=== PATIENT | male | born 1940 | race Caucasian/White ===

== ENCOUNTER 2016-05-22 09:57 | Observation (INO) | payer OTHER ==
--- NOTE | ~2016-05-22 | HP ---
History And Physical [address] [place]. [address] NAME: ELOISA BOURGEOIS : 36 STATUS : ADM Dillon PAT#: [id number] AGE: 76 ADM/REG DATE : 05/22/16 MR#: [id number] REPORT SERV DATE: 05/23/16 DICTATED BY: JENNIFER RAHMAN DATE: 05/23/16 REPORT STATUS : Draft TRANSCRIBED BY: MODYolette DATE: 05/23/16 DATE OF ADMISSION: 05/22/2016 CHIEF COMPLAINT: Chest pain. HISTORY OF PRESENT ILLNESS: This is a 76-year-old male with history of hypertension, hyperlipidemia and type 2 diabetes mellitus, who states onset of right-sided chest pain a couple of days ago while at rest. The chest pain is described as "like somebody cutting me with a knife," and he points to the right side of his chest. It is a 4/10 to 5/10 in intensity, and he states it has been constant since onset. Sometimes, it seems worse with a cough or a deep breath. Of note, the patient was diagnosed with sinusitis by his primary care physician a couple of weeks ago, and the patient states he completed antibiotic therapy as well as a steroid dose pack. He continues to have white and green-colored sputum with coughing, but denies any fever or chills. The patient denies personal history for HI, CVA, PE, or DVT. He states compliance with his medications, although he is not certain of all the doses. Denies any orthopnea, PND, significant shortness of breath with daily activities, lower extremity edema, or palpitations. He does note that sometime last week, he stood up all of a sudden and then fell to the floor. There was no "blackout", but the patient felt like his legs just "gave out." He sustained no injury. No abdominal pain, nausea, or vomiting. PAST MEDICAL HISTORY: 1. Hypertension. 2. Mixed hyperlipidemia. 3. Type 2 diabetes mellitus, on metformin. 4. GERD. 5. BPH. 6. Obesity. PAST SURGICAL HISTORY: 1. Left total knee replacement x2. 2. Right knee arthroscopy x3. 3. Cholecystectomy. 4. Bilateral cataract surgery with intraocular lens implant. 5. Bilateral carpal tunnel surgery x2. HOME MEDICATIONS: Doses have not yet been clarified, but the patient states he takes lisinopril, metformin, Vytorin, potassium supplementation, and something for his prostate. The patient also states he takes 440 mg of Aleve twice a day as needed and has been taking this for the last couple of days. Flonase nasal spray and apparently completed cephalexin 500 mg p.o. b.i.d. x10 days as well as methylprednisolone dose pack. ALLERGIES: HE IS ALLERGIC TO CODEINE, WHICH CAUSES HALLUCINATIONS AND CONFUSION, AND BETADINE SOAP CAUSES BLISTERING. History And Physical [address] [address] NAME: ELOISA BOURGEOIS : 36 STATUS : ADM Dillon PAT#: [id number] AGE: 76 ADM/REG DATE : 05/22/16 MR#: [id number] REPORT SERV DATE: 05/23/16 DICTATED BY: JENNIFER RAHMAN DATE: 05/23/16 REPORT STATUS : Draft TRANSCRIBED BY: LUIS ANGEL DATE: 05/23/16 SOCIAL HISTORY: The patient is a and lives with his daughter and two grandsons. He has a total of two daughters. He quit smoking 47 years ago. No alcohol use. He is a retired machinery erector. FAMILY HISTORY: Father with CVA around 65 and at age 71. The patient had one sister with pacemaker. No premature cardiovascular among his first-degree relatives. REVIEW OF SYSTEMS: The patient states he is going to need a right total knee replacement in the near future. All other review of systems negative, except as indicated above. PHYSICAL EXAMINATION: VITAL SIGNS: Blood pressure 109/63, heart rate 60, temperature 97.5, pulse oximetry 93% room air. BMI 34.8. GENERAL: Well developed, well nourished, in no acute distress HEENT: Anicteric. Normal EOM. Head, normocephalic. PERRLA, no xanthelasma. NECK: Supple. No JVD. Carotids normal without bruits. LUNGS: Clear to auscultation bilaterally with diminished breath sounds to the bases. Normal respiratory effort at rest. CARDIOVASCULAR: S1, S2. Regular rate and rhythm. No murmurs, rubs, or gallops appreciated. PMI nondisplaced. There is some tenderness to palpation over the right chest wall and right lower intercostal spaces. ABDOMEN: Normal bowel sounds. Soft and nontender to palpation. No masses or organomegaly. EXTREMITIES: No peripheral edema. DP/PT and radial pulses palpable bilaterally. No clubbing or cyanosis. SKIN: Warm and dry. Normal turgor. No pallor or cyanosis. MUSCULOSKELETAL: Moving all extremities x4. Normal muscle strength. NEURO/PSYCH: Alert and oriented with appropriate affect. LABORATORY DATA: White blood count 11.9, hemoglobin 15.5, hematocrit 45.6. Sodium 139, potassium 3.9, BUN 26, creatinine 1.2, glucose 109. Troponin less than 0.02 x2. Chest x- ray reveals some mediastinal enlargement to my assessment. No other acute cardiopulmonary processes identified. EKGs interpreted by myself indicate normal sinus rhythm on three separate EKGs without any ischemia. ASSESSMENT AND PLAN: 1. Atypical chest pain in this 76-year-old male with cardiovascular risk factors of hypertension, hyperlipidemia, and diabetes. He does have what appears to be some mediastinal enlargement on chest x-ray. For this reason, I will proceed with a CTA of the chest to rule out any aortic enlargement. The patient's heart rate has been stable. Oxygen on room air has been 93% to 95%. Blood pressure has actually been low, and he has not received any of his antihypertensives. If CTA of the chest does not reveal anything acute, we will plan to proceed with a nuclear stress test today and if this does not indicate any ischemia, discharge to follow up with his primary care physician. If testing today does not reveal any acute processes, the patient's pain may be attributed to some costochondritis secondary to his sinusitis and cough over the last couple of weeks. We will arrange followup with his primary care physician. History And Physical [address] [address] NAME: ELOISA BOURGEOIS : 36 STATUS : ADM Dillon PAT#: [id number] AGE: 76 ADM/REG DATE : 05/22/16 MR#: [id number] REPORT SERV DATE: 05/23/16 DICTATED BY: JENNIFER RAHMAN DATE: 05/23/16 REPORT STATUS : Draft TRANSCRIBED BY: LUIS ANGEL DATE: 05/23/16 2. Abnormal chest x-ray finding. Plan as above. 3. Hypertension. Blood pressure actually on the low side. We will review the patient's home medication dose and continue as appropriate. 4. Mixed hyperlipidemia. The patient states he is on Vytorin. We will continue when dose verified. 5. Sinusitis with persistent cough. White blood count is only mildly elevated. No fevers and no adventitious breath sounds. We will encourage followup with his primary care physician as the cough is still persistent. 6. Type 2 diabetes mellitus. Glucose appears controlled. Continue level 1 sliding scale insulin protocol while he is here. DBT/MODL Jennifer Rahman NP / [id number] CC: Tammie Urena, MSN, BUDGET EXAMINER- Kulwant Hedrick M.D.
[2016-05-22 09:49] LABS: BASOPHILS 0.1 %; BASOPHILS ABSOLUTE 0.01 10/3/uL (0.0-0.16); EOSINOPHILS 1.3 %; EOSINOPHILS ABSOLUTE 0.16 10/3/uL (0.0-0.53); ER CBC TAT 0 Hrs 07 Mins; HEMATOCRIT 45.6 % (40.0-51.0); HEMOGLOBIN 15.5 g/dL (13.6-17.8); IMMATURE GRANULOCYTES 0.4 %; IMMATURE GRANULOCYTES ABSOLUTE 0.05 10/3/uL (0.0-0.11); LYMPHOCYTES 13.7 %; LYMPHOCYTES ABSOLUTE 1.63 10/3/uL (0.67-4.30); MANUAL DIFF NO %; MEAN CORPUSCULAR VOLUME 91.2 fL (80-100); MEAN PLATELET VOLUME 9.3 fL (9.2-13.0); MONOCYTES 7.5 %; MONOCYTES ABSOLUTE 0.89 10/3/uL (0.21-1.20); NEUTROPHILS ABSOLUTE 9.13 10/3/uL (2.02-8.40); PLATELET COUNT 285 10/3/uL (150-400); RBC DISTRIBUTION WIDTH 12.9 % (12.0-16.0); WHITE BLOOD CELLS 11.9 10/3/uL (4.5-10.5)
[2016-05-22 09:56] LABS: INTERNATIONAL NORMAL RATI 1.2 UNITS (-); PARTIAL THROMBO TIME 26.1 SEC (22.5-37.2); PROTIME (NOT ORD) 14.9 SEC (12.0-14.5)
[2016-05-22 11:55] LABS: BUN (BLOOD UREA NITROGEN) 26 MG/DL (6-23); CALCIUM, SERUM 8.6 MG/DL (8.5-10.4); CHEST PAIN PROFILE TAT 2 Hrs 13 Mins; CHLORIDE, SERUM 105 MMOL/L (96-112); CO2 (CARBON DIOXIDE) 26 MMOL/L (24-34); GFR AFRICAN AMERICAN 67 ML/MIN (>=60); GFR NON AFRICAN AMERICAN 58 ML/MIN (>=60); GLUCOSE, SERUM 109 MG/DL (60-99); POTASSIUM, SERUM 3.9 MMOL/L (3.5-5.3); SODIUM, SERUM 139 MMOL/L (135-148); TROPONIN I <0.02 NG/ML (<0.05)
[2016-05-22] MEDS ORDERED: VYTORIN 10/40 T1 TAB PO (13:15)
[2016-05-22] MEDS ORDERED: PRINZIDE1 TA1 PO (13:15)
[2016-05-22] MEDS ORDERED: KLOR-CON 1010 MEQ PO (13:15)
[2016-05-22] MEDS ORDERED: GLUCPH PO (13:15)
[2016-05-22] MEDS ORDERED: OTC ACID REDUCER PO (13:16)
[2016-05-22] MEDS ORDERED: FLOMAX4 PO (13:16)
[2016-05-22] MEDS ORDERED: ALEVE220 MG PO (13:16)
[2016-05-22] MEDS ORDERED: FLONASE NAS (13:17)
[2016-05-22] MEDS ORDERED: K500 PO (13:17)
[2016-05-22] MEDS ORDERED: BIOFREEZE TOP (13:18)
[2016-05-22] MEDS ORDERED: MEDROLPAK4 PO (13:20)
== END 2016-05-23 17:02 | disposition home or self-care (01) ==
LOC: ER 09:57 → CDU2 12:53 → CDU1 13:14
PROVIDERS: Emergency Medicine
DX: R07.89 Other chest pain (principal); I10 Essential (primary) hypertension; E11.9 Type 2 diabetes mellitus without complications; J32.9 Chronic sinusitis, unspecified; E78.2 Mixed hyperlipidemia; K21.9 Gastro-esophageal reflux disease without esophagitis; M06.9 Rheumatoid arthritis, unspecified; E66.9 Obesity, unspecified; Z98.890 Other specified postprocedural states; Z90.49 Acquired absence of other specified parts of digestive tract; Z88.5 Allergy status to narcotic agent; Z79.899 Other long term (current) drug therapy; Z87.891 Personal history of nicotine dependence
CPT/HCPCS: 71010; 71275; 78452; 80048; 82962; 83690; 83735; 84484; 85025; 85610; 85730; 93005; 93017; 96374; 99285; A9270-GY; A9502; G0378; J0153; J2405; Q9967